=== PATIENT | female | born 1975 | race Asian ===

== ENCOUNTER 2017-01-16 19:46 | Emergency (ER) | payer OTHER ==
[2017-01-16 20:48] LABS: BASOPHIL % 0.1 % (0-2); PLATELET COUNT 343 x10^3mcL (130-400)
[2017-01-16 20:53] LABS: RED CELL DISTRIBUTION WIDTH 15.4 % (11.5-14.5)
[2017-01-16 21:15] LABS: CARBON DIOXIDE 25.3 mmol/L (21-32); CHLORIDE SERUM 105 mmol/L (98-107); GFR1 > 60 mL/min; GLUCOSE SERUM 117 mg/dL (74-106); POTASSIUM SERUM 4.1 mmol/L (3.5-5.1); SODIUM SERUM 138 mmol/L (136-145)
[2017-01-16 21:20] LABS: ALBUMIN 4.2 g/dL (3.4-5.0); ALKALINE PHOSPHATASE 45 U/L (46-116); ALT/SGPT 12 U/L (14-59); AST/SGOT 15 U/L (15-37); BILIRUBIN TOTAL 0.54 mg/dL (0.20-1.00); LIPASE 104 IU/L (73-393); TOTAL PROTEIN, SERUM 8.2 g/dL (6.4-8.2)
[2017-01-16 22:01] VITALS: BP 116/73
== END 2017-01-16 22:01 | disposition home or self-care (01) ==
LOC: ED 19:46
PROVIDERS: Emergency Medicine
DX: R10.9 Unspecified abdominal pain (principal)
CPT/HCPCS: J1885; Q0162

== ENCOUNTER 2018-04-16 20:36 | Emergency (ER) | payer OTHER ==
[~2018-04-16] VITALS: Ht 160 cm; Wt 81.6 kg
[2018-04-16 22:00] LABS: BASOPHIL % 0.3 % (0-2); PLATELET COUNT 346 x10^3mcL (130-400)
[2018-04-16 22:03] LABS: RED CELL DISTRIBUTION WIDTH 15.6 % (11.5-14.5)
[2018-04-16 22:10] LABS: CALCIUM 8.8 mg/dL (8.5-10.1); CARBON DIOXIDE 29.6 mmol/L (21-32); CHLORIDE SERUM 100 mmol/L (98-107); GFR1 > 60 mL/min; GLUCOSE SERUM 112 mg/dL (74-106); POTASSIUM SERUM 3.5 mmol/L (3.5-5.1); SODIUM SERUM 137 mmol/L (136-145)
[2018-04-16 22:15] LABS: ALBUMIN 4.1 g/dL (3.4-5.0); ALKALINE PHOSPHATASE 42 U/L (46-116); AMYLASE 78 U/L (25-115); AST/SGOT 9 U/L (15-37); BILIRUBIN TOTAL 0.52 mg/dL (0.20-1.00); LIPASE 180 IU/L (73-393); TOTAL PROTEIN, SERUM 7.8 g/dL (6.4-8.2)
[2018-04-16 22:24] LABS: ALT/SGPT 11 U/L (14-59)
[2018-04-16 23:24] LABS: UA SPECIFIC GRAVITY 1.025 (1.005-1.035); microscopic required? YES; urine erythrocyte 2+ (NEGATIVE)
[2018-04-17 04:12] VITALS: BP 156/85
== END 2018-04-17 05:47 | disposition short-term general hospital (02) ==
LOC: ED 20:36
PROVIDERS: Emergency Medicine
DX: R11.10 Vomiting, unspecified (principal); R10.13 Epigastric pain; R10.31 Right lower quadrant pain
CPT/HCPCS: C9113; J2405; J2765; J7030

== ENCOUNTER → 2019-06-18 | Outpatient (REF) | END | disposition home or self-care (01) | LOC: EH 07:42 | DX: R76.11 Nonspecific reaction to tuberculin skin test without active tuberculosis (principal) ==